=== PATIENT | male | born 1995 | race Caucasian/White ===

== ENCOUNTER 2025-06-23 15:20 | Emergency (ER) | payer OTHER, SELFPAY ==
[2025-06-23 15:25] VITALS: BP 160/85
[2025-06-23 16:17] LABS: Hematocrit 43.5 % (39.0-52.0); Hemoglobin 15.0 g/dL (13.0-18.0); Mean Corp Hgb Conc. 34.5 g/dL (33.0-37.0); Mean Corpuscular Volume 86.8 fL (80.0-94.0); Nucleated Red Blood Cells % 0 % (-); Platelet Count 175 10^3/uL (130-400); Red Cell Dist. Width 11.7 % (11.5-14.5)
[2025-06-23 16:30] LABS: ALT (SGPT) 22 U/L (0-50); AST (SGOT) 20 U/L (17-59); Albumin 4.7 g/dl (3.5-5.0); Alkaline Phosphatase 61 U/L (38-126); Blood Urea Nitrogen 19 mg/dl (9-20); Calcium 9.1 mg/dl (8.4-10.2); Carbon Dioxide 29 mmol/L (22-30); Chloride 102 mmol/L (98-107); Glucose 99 mg/dl (70-99); Potassium 4.2 mmol/L (3.5-5.1); Sodium 139 mmol/L (135-145); Total Protein 7.7 g/dl (6.3-8.2); eGFR > 60.00
--- NOTE | 2025-06-23 17:05 | ED.SKININJ ---
HPI-Injury
General
Chief Complaint: Skin Problem
Source: patient
Exam Limitations: none
Time Seen by Provider: 06/23/25 16:46
History of Present Illness-Injury
Initial Injury comments:
30-year-old male presents with persistent redness swelling and pain to the lower right leg. He was at an urgent care couple days ago diagnosed with cellulitis and started on Keflex. He notes no improvement. He did have a fever at the onset of the
symptoms. He does jujitsu regularly and is regular in the gym.
Phy Exam
Physical Exam
Physical Exam:
General: Well-appearing male no acute respiratory distress
HEENT: Normal cephalic atraumatic
Skin: Erythema with central area of fluctuance and raised area skin. No significant lymphangitic streaking
Vascular: 2+ DP pulse right foot
Course
Orders/Labs/Results
Orders:
Orders
06/23/25 16:07
Complete Blood Count/With Diff Urgent
Comprehensive Metabolic Panel Urgent
Abnormal Lab Results
06/23/25
16:07
Absolute Monos (auto) 0.7 H 10^3/uL
(0.1-0.6)
Monocytes % 10.2 H %
(1.7-9.3)
06/23/25 16:07
06/23/25 16:07
Vital Signs
Initial and Last Documented VS:
Initial Vital Signs
Temp Pulse Resp BP Pulse Ox
98.1 F 74 16 160/85 97
06/23/25 15:25 06/23/25 15:25 06/23/25 15:06/23/25 15:25 06/23/25 15:25
Last Documented Vital Signs
Temp Pulse Resp BP Pulse Ox
98.1 F 74 16 160/85 97
06/23/25 15:25 06/23/25 15:06/23/25 15:06/23/25 15:25 06/23/25 15:25
MDM/Problems Addressed
Differential Diagnosis Includes:
Abscess with surrounding cellulitis right leg. Not improving on Keflex I suspect staph given the collection of purulence. The skin was prepped with Betadine and anesthetized with 1% lidocaine. 11 blade scalpel was used to perform an incision. A
small amount of purulence was received followed by bloody return. A culture was taken. He is healthy. No fever here. He has been receiving coverage for staph. White count is normal. Do not feel he needs to be admitted. He is sulfa allergic
but will switch to doxycycline. Recommended warm compresses to the area and return precautions were given
*Pulse Oximetry
SaO2: 97
Oxygen Mode of Delivery: Room air
Patient hypoxic: no
*Critical Care Note
Total Time (30-74mins, 75-104mins- exclusive of procedures): Not Applicable
ED Attending Note
-
Portions of this chart may have been created with voice recognition software.� Occasional wrong word or��sound alike� substitutions may have occurred due to the inherent limitations of voice recognition software.
Discharge Plan
Departure
Patient Disposition: Home (Routine Discharge)
Date of Disposition: 06/23/25
Time of Disposition: 17:09
Patient with high blood pressure during this ER visit?: No
Discharge Problem:
Abscess
Instructions: Skin Abscess
Prescriptions:
New
doxycycline hyclate 100 mg capsule
100 mg PO BID Qty: 14 0RF
Activity Restrictions/Additional Instructions:
Apply warm compresses to the area. Use doxycycline as directed. You may stop Keflex. Return here for increasing redness fever or other concerning findings. A wound culture is pending
Interventions
Interventions:
*Risk Screen - Suicide Last Done: 06/23/25 15:25
*General Assessment Last Done: 06/23/25 16:46
*Neglect/Abuse Screening Last Done: 06/23/25 15:25
*ED- Fall Risk Assessment Last Done: 06/23/25 16:46
*ED COVID-19 Vaccine History Last Done: 06/23/25 16:46
*ED Influenza Vaccine History Last Done: 06/23/25 16:46
ED-Skin Assessment Last Done: 06/23/25 16:10
Discharge Date and Time
Print Language: BULGARIAN
[2025-06-23] MEDS: VIBRAMYCIN 100 MG PO (17:13)
[2025-06-23 17:15] VITALS: BP 148/92
== END 2025-06-23 17:20 | disposition home or self-care (01) ==
LOC: EMR 15:20
PROVIDERS: EMERGENCY PHYSICIAN Student in an Organized Health Care Education/Training Program; FAMILY PHYSICIAN Internal Medicine
DX: L02.415 Cutaneous abscess of right lower limb (principal); B95.61 Methicillin susceptible Staphylococcus aureus infection as the cause of diseases classified elsewhere; Z88.2 Allergy status to sulfonamides
CPT/HCPCS: 99283; 10060; 80053; 85025; 87070; 87147; 87205